=== PATIENT | male | born 1990 | race Two or more races ===

== ENCOUNTER 2020-01-06 16:45 | Emergency (ER) | payer MEDICAID, SELFPAY ==
[~2020-01-06] VITALS: Ht 182.9 cm; Wt 78.0 kg
[~2020-01-06 16:45] MED LIST: NOCURR
[2020-01-06] MEDS ORDERED: ESCI5SOL2 PO (16:52)
[2020-01-06] MEDS ORDERED: CLON0.1T83 PO (16:52)
[2020-01-06] MEDS ORDERED: TRAZ150 PO (16:56)
[2020-01-06] MEDS ORDERED: AMPH12.52 PO (16:56)
[2020-01-06] MEDS ORDERED: SUMA25TA9 PO (16:56)
[2020-01-06] MEDS ORDERED: ALBU8HFA IH (16:56)
[2020-01-06] MEDS ORDERED: CETI5TAB14 PO (16:56)
[2020-01-06 17:51] VITALS: BP 116/94
== END 2020-01-06 17:57 | disposition home or self-care (01) ==
LOC: EMS 16:45
DX: K12.0 Recurrent oral aphthae (principal); G43.909 Migraine, unspecified, not intractable, without status migrainosus; J45.909 Unspecified asthma, uncomplicated; F41.9 Anxiety disorder, unspecified; F32.9 Major depressive disorder, single episode, unspecified; Z79.899 Other long term (current) drug therapy

== ENCOUNTER 2020-01-13 01:59 | Emergency (ER) | payer MEDICAID ==
[~2020-01-13] VITALS: Ht 182.9 cm; Wt 79.5 kg
[~2020-01-13 01:59] MED LIST changes: +ALBU8HFA IH; +AMPH12.52 PO; +CETI5TAB14 PO; +CLON0.1T83 PO; +ESCI5SOL2 PO; -NOCURR; +SUMA25TA9 PO; +TRAZ150 PO
[2020-01-13] MEDS ORDERED: IBUPROFEN 800 MG TABLET PO ONE (03:30)
[2020-01-13 03:32] VITALS: BP 131/71
== END 2020-01-13 03:33 | disposition home or self-care (01) ==
LOC: EMS 02:01
DX: R07.81 Pleurodynia (principal); G43.909 Migraine, unspecified, not intractable, without status migrainosus; F41.9 Anxiety disorder, unspecified; J45.909 Unspecified asthma, uncomplicated; Z79.899 Other long term (current) drug therapy
CPT/HCPCS: 71100

== ENCOUNTER 2020-02-21 12:53 | Emergency (ER) | payer MEDICAID ==
[~2020-02-21] VITALS: Ht 182.9 cm; Wt 79.5 kg
[2020-02-21] MEDS ORDERED: CLON0.1T83 PO (13:02)
[2020-02-21] MEDS ORDERED: BECL10.6 IH (13:02)
[2020-02-21] MEDS ORDERED: TRAZ-252 PO (13:02)
[2020-02-21] MEDS ORDERED: ESCI5SOL2 PO (13:02)
[2020-02-21] MEDS ORDERED: CETI5TAB14 PO (13:02)
[2020-02-21 15:13] VITALS: BP 133/81
== END 2020-02-21 15:17 | disposition home or self-care (01) ==
LOC: EMS 12:56
DX: R05 Cough (principal); F32.9 Major depressive disorder, single episode, unspecified; J45.909 Unspecified asthma, uncomplicated; F41.9 Anxiety disorder, unspecified; Z79.899 Other long term (current) drug therapy

== ENCOUNTER 2020-04-02 16:59 | Emergency (ER) | payer MEDICAID ==
[~2020-04-02] VITALS: Ht 182.9 cm; Wt 77.3 kg
[~2020-04-02 16:59] MED LIST changes: +BECL10.6 IH; +TRAZ-252 PO; -TRAZ150 PO
[2020-04-02] MEDS ORDERED: MUPIROCIN CALCIUM 2% 22 GM OINTMENT TP ONE (17:30)
[2020-04-02 18:13] VITALS: BP 126/81
== END 2020-04-02 18:20 | disposition home or self-care (01) ==
LOC: EMS 17:01
DX: S90.811A Abrasion, right foot, initial encounter (principal); J45.909 Unspecified asthma, uncomplicated; F32.9 Major depressive disorder, single episode, unspecified; G43.909 Migraine, unspecified, not intractable, without status migrainosus; F41.9 Anxiety disorder, unspecified; X58.XXXA Exposure to other specified factors, initial encounter; Y93.01 Activity, walking, marching and hiking; Y92.89 Other specified places as the place of occurrence of the external cause; Y99.8 Other external cause status

== ENCOUNTER 2020-05-04 20:57 | Emergency (ER) | payer MEDICAID ==
[~2020-05-04] VITALS: Ht 182.9 cm; Wt 68.2 kg
[2020-05-04] MEDS ORDERED: BACITRACIN 0.9 GM PACKET OINTMENT TP ONE (22:30)
[2020-05-04] MEDS ORDERED: CIPROFLOXACIN HCL 250 MG TABLET PO ONE (22:30)
[2020-05-04] MEDS ORDERED: DOXYCYCLINE HYCLATE 100 MG CAPSULE PO ONE (22:30)
[2020-05-04 22:59] VITALS: BP 124/68
== END 2020-05-04 23:29 | disposition home or self-care (01) ==
LOC: EMS 20:57
DX: S91.331A Puncture wound without foreign body, right foot, initial encounter (principal); J45.909 Unspecified asthma, uncomplicated; G43.909 Migraine, unspecified, not intractable, without status migrainosus; F41.9 Anxiety disorder, unspecified; F32.9 Major depressive disorder, single episode, unspecified; F19.90 Other psychoactive substance use, unspecified, uncomplicated; W22.8XXA Striking against or struck by other objects, initial encounter; Y93.89 Activity, other specified; Y92.89 Other specified places as the place of occurrence of the external cause; Y99.8 Other external cause status

== ENCOUNTER 2020-10-13 16:25 | Emergency (ER) | payer MEDICAID ==
[~2020-10-13] VITALS: Ht 180.3 cm; Wt 56.8 kg
[2020-10-13 17:01] VITALS: BP 140/80
== END 2020-10-13 17:12 | disposition home or self-care (01) ==
LOC: EMS 16:25
DX: S61.255A Open bite of left ring finger without damage to nail, initial encounter (principal); F15.90 Other stimulant use, unspecified, uncomplicated; F32.9 Major depressive disorder, single episode, unspecified; F41.9 Anxiety disorder, unspecified; J45.909 Unspecified asthma, uncomplicated; Z79.899 Other long term (current) drug therapy; G43.909 Migraine, unspecified, not intractable, without status migrainosus; W55.01XA Bitten by cat, initial encounter; Y93.89 Activity, other specified; Y92.89 Other specified places as the place of occurrence of the external cause; Y99.8 Other external cause status
CPT/HCPCS: 99283; Z7502

== ENCOUNTER 2021-03-01 13:56 | Emergency (ER) | payer MEDICAID ==
[~2021-03-01] VITALS: Ht 182.9 cm; Wt 84.1 kg
[~2021-03-01 13:56] MED LIST changes: +CLON0.1T2 PO; -CLON0.1T83 PO
[2021-03-01] MEDS ORDERED: CETI-450 PO (14:59)
[2021-03-01] MEDS ORDERED: ESCI-8 PO (14:59)
[2021-03-01] MEDS ORDERED: NAPROXEN 250 MG TABLET PO ONE (15:00)
[2021-03-01] MEDS ORDERED: METHOCARBAMOL 500 MG TABLET PO ONE (15:00)
[2021-03-01 15:26] VITALS: BP 125/82
== END 2021-03-01 15:27 | disposition home or self-care (01) ==
LOC: EMS 14:01
DX: S46.912A Strain of unspecified muscle, fascia and tendon at shoulder and upper arm level, left arm, initial encounter (principal); F41.9 Anxiety disorder, unspecified; F32.9 Major depressive disorder, single episode, unspecified; J45.909 Unspecified asthma, uncomplicated; G43.909 Migraine, unspecified, not intractable, without status migrainosus; F19.90 Other psychoactive substance use, unspecified, uncomplicated; X58.XXXA Exposure to other specified factors, initial encounter; Y93.89 Activity, other specified; Y92.89 Other specified places as the place of occurrence of the external cause; Y99.8 Other external cause status
CPT/HCPCS: 99283

== ENCOUNTER 2021-03-25 14:39 | Emergency (ER) | payer MEDICAID ==
[~2021-03-25] VITALS: Ht 182.9 cm; Wt 85.0 kg
[~2021-03-25 14:39] MED LIST changes: +CETI-450 PO; -CETI5TAB14 PO; +ESCI-8 PO; -ESCI5SOL2 PO
[2021-03-25] MEDS: IBUPROFEN 600 MG TABLET PO ONE (18:17)
[2021-03-25 18:30] VITALS: BP 136/76
== END 2021-03-25 18:45 | disposition home or self-care (01) ==
LOC: EMS 14:39
DX: S29.012A Strain of muscle and tendon of back wall of thorax, initial encounter (principal); X58.XXXA Exposure to other specified factors, initial encounter; Y93.89 Activity, other specified; Y92.89 Other specified places as the place of occurrence of the external cause; Y99.8 Other external cause status
CPT/HCPCS: 99283

== ENCOUNTER 2021-05-11 11:09 | Emergency (ER) | payer MEDICAID ==
[~2021-05-11] VITALS: Ht 182.9 cm; Wt 100.0 kg
[2021-05-11 13:39] VITALS: BP 154/104
== END 2021-05-11 14:01 | disposition home or self-care (01) ==
LOC: EMS 12:04
DX: R07.89 Other chest pain (principal); R06.00 Dyspnea, unspecified; F41.9 Anxiety disorder, unspecified; J45.909 Unspecified asthma, uncomplicated; F32.9 Major depressive disorder, single episode, unspecified; F15.90 Other stimulant use, unspecified, uncomplicated
CPT/HCPCS: 71045; 93005; 99283

== ENCOUNTER 2021-06-19 13:07 | Emergency (ER) | payer MEDICAID ==
[~2021-06-19] VITALS: Ht 185.4 cm; Wt 81.8 kg
[2021-06-19 13:56] VITALS: BP 135/78
[2021-06-19 14:06] LABS: COVID AG,FIA SOURCE NASOPHARYNGEAL
== END 2021-06-19 14:55 | disposition home or self-care (01) ==
LOC: EMS 13:07
DX: R06.02 Shortness of breath (principal); R05 Cough; M79.10 Myalgia, unspecified site; F41.9 Anxiety disorder, unspecified; J45.909 Unspecified asthma, uncomplicated; F32.9 Major depressive disorder, single episode, unspecified; G43.909 Migraine, unspecified, not intractable, without status migrainosus; F19.90 Other psychoactive substance use, unspecified, uncomplicated; Z20.822 Contact with and (suspected) exposure to COVID-19
CPT/HCPCS: 71045; 87426; 99284; U0003

== ENCOUNTER 2021-09-23 14:57 | Emergency (ER) | payer MEDICAID ==
[~2021-09-23] VITALS: Ht 180.3 cm; Wt 77.3 kg
[2021-09-23 16:51] VITALS: BP 131/77
[2021-09-23] MEDS ORDERED: LOPERAMIDE HCL 2 MG CAPSULE PO ONE (17:15)
[2021-09-23] MEDS ORDERED: MECLIZINE HCL 25 MG TABLET PO ONE (17:15)
== END 2021-09-23 18:02 | disposition home or self-care (01) ==
LOC: EMS 15:02
DX: G43.909 Migraine, unspecified, not intractable, without status migrainosus (principal); R42 Dizziness and giddiness
CPT/HCPCS: 99283

== ENCOUNTER 2021-11-21 11:51 | Emergency (ER) | payer MEDICAID ==
[~2021-11-21] VITALS: Ht 182.9 cm; Wt 90.9 kg
[2021-11-21 12:00] VITALS: BP 122/84
[2021-11-21 12:32] LABS: COVID AG,FIA SOURCE NASOPHARYNGEAL
== END 2021-11-21 14:25 | disposition home or self-care (01) ==
LOC: EMS 11:52
DX: U07.1 COVID-19 (principal)
CPT/HCPCS: 99283

== ENCOUNTER 2022-05-19 14:27 | Emergency (ER) | payer MEDICAID ==
[~2022-05-19] VITALS: Ht 182.9 cm; Wt 81.0 kg
[2022-05-19 15:38] LABS: BASOPHILS % (AUTO) 0.1 % (0.0-2.0); EOSINOPHILS % (AUTO) 0.8 % (1.0-6.0); HEMATOCRIT 41.2 % (41-53); HEMOGLOBIN 13.9 g/dL (13.5-17.5); LYMPHOCYTES # (AUTO) 2.6 K/uL (1.0-4.8); LYMPHOCYTES % (AUTO) 23.9 % (22.0-44.0); MEAN CORPUSCULAR HEMOGLOBIN 29.6 pg (26.0-34.0); MEAN CORPUSCULAR HGB CONC 33.9 G/dL (31.0-37.0); MEAN CORPUSCULAR VOLUME 87 fL (80-100); MONOCYTES # (AUTO) 0.7 K/uL (0.1-1.0); MONOCYTES % (AUTO) 6.3 % (2.0-9.0); NEUTROPHILS # (AUTO) 7.6 K/uL (1.8-7.7); NEUTROPHILS % (AUTO) 68.9 % (40.0-70.0); PLATELET COUNT (AUTO) 328 K/uL (150-450); RED BLOOD CELL COUNT(AUTO) 4.71 MIL/uL (4.50-5.90); RED CELL DISTRIBUTION WIDTH 12.4 % (11.5-14.5)
[2022-05-19 15:52] LABS: ANION GAP 11 mmol/L (8-16); CALCIUM, TOTAL 9.2 mg/dL (8.8-10.5); CARBON DIOXIDE 23 mmol/L (22-29); CHLORIDE 102 mmol/L (98-107); CREATININE 1.01 mg/dL (0.60-1.30); GLOMERULAR FILTR. RATE CALC > 60 mL/min (>60); GLUCOSE,RANDOM 96 mg/dL (70-110); POTASSIUM 3.9 mmol/L (3.5-5.1); SODIUM SERUM 136 mmol/L (136-145); UREA NITROGEN, BLOOD 12 mg/dL (7-18)
[2022-05-19 16:00] LABS: ALANINE AMINOTRANSFERASE 20 U/L (12-78); ALBUMIN 4.1 g/dL (3.4-5.0); ALKALINE PHOSPHATASE 74 U/L (46-116); ASPARTATE AMINOTRANSFERASE 13 U/L (15-37); BILIRUBIN,TOTAL 0.3 mg/dL (0.1-1.0); TOTAL PROTEIN, SERUM 7.9 g/dL (6.4-8.2)
[2022-05-19] MEDS ORDERED: POLY17PO PO (17:51)
[2022-05-19 17:54] VITALS: BP 125/84
== END 2022-05-19 18:28 | disposition home or self-care (01) ==
LOC: EMS 14:33
DX: K59.00 Constipation, unspecified (principal); J45.909 Unspecified asthma, uncomplicated; Z79.899 Other long term (current) drug therapy
CPT/HCPCS: 74022; 80053; 85025; 99284

== ENCOUNTER 2023-08-02 14:28 | Emergency (ER) | payer MEDICAID ==
[~2023-08-02] VITALS: Ht 185.4 cm; Wt 77.3 kg
[~2023-08-02 14:28] MED LIST changes: +ALBU18HF12 IH; -ALBU8HFA IH; +POLY17PO PO; +SUMA25TA15 PO; -SUMA25TA9 PO
[2023-08-02 16:42] LABS: BASOPHILS % (AUTO) 0.3 % (0.0-2.0); EOSINOPHILS % (AUTO) 1.5 % (1.0-6.0); HEMATOCRIT 40.4 % (41-53); HEMOGLOBIN 13.8 g/dL (13.5-17.5); LYMPHOCYTES % (AUTO) 39.5 % (22.0-44.0); MEAN CORPUSCULAR HEMOGLOBIN 30.3 pg (26.0-34.0); MEAN CORPUSCULAR VOLUME 89 fL (80-100); MONOCYTES # (AUTO) 0.7 K/uL (0.1-1.0); NEUTROPHILS # (AUTO) 3.7 K/uL (1.8-7.7); NEUTROPHILS % (AUTO) 49.7 % (40.0-70.0); PLATELET COUNT (AUTO) 355 K/uL (150-450); RED BLOOD CELL COUNT(AUTO) 4.54 MIL/uL (4.50-5.90); RED CELL DISTRIBUTION WIDTH 12.6 % (11.5-14.5); WHITE BLOOD COUNT (AUTO) 7.5 K/uL (4.5-11.0)
[2023-08-02 16:48] LABS: ANION GAP 10 mmol/L (8-16); CALCIUM, TOTAL 9.3 mg/dL (8.8-10.5); CARBON DIOXIDE 25 mmol/L (22-29); CHLORIDE 105 mmol/L (98-107); CREATININE 0.83 mg/dL (0.60-1.30); GLOMERULAR FILTR. RATE CALC > 60 mL/min (>60); GLUCOSE,RANDOM 91 mg/dL (70-110); POTASSIUM 3.4 mmol/L (3.5-5.1); SODIUM SERUM 140 mmol/L (136-145); UREA NITROGEN, BLOOD 8 mg/dL (7-18)
[2023-08-02 16:55] LABS: ALANINE AMINOTRANSFERASE 13 U/L (12-78); ALKALINE PHOSPHATASE 67 U/L (46-116); ASPARTATE AMINOTRANSFERASE 12 U/L (15-37); BILIRUBIN,TOTAL 0.2 mg/dL (0.1-1.0); TOTAL PROTEIN, SERUM 7.3 g/dL (6.4-8.2)
[2023-08-02 17:30] VITALS: BP 126/75; PULSE 75; RESP 12
== END 2023-08-02 17:38 | disposition home or self-care (01) ==
LOC: EMS 14:28
DX: K62.5 Hemorrhage of anus and rectum (principal); J45.909 Unspecified asthma, uncomplicated; F90.9 Attention-deficit hyperactivity disorder, unspecified type
CPT/HCPCS: 80053; 85025; 99283

== ENCOUNTER 2024-10-25 14:06 | Emergency (ER) | payer MEDICAID ==
[~2024-10-25] VITALS: Ht 182.9 cm; Wt 80.5 kg
[~2024-10-25 14:06] MED LIST changes: -POLY17PO PO; +POLY17PO62 PO
[2024-10-25 14:18] VITALS: TEMP 98.3
[2024-10-25] MEDS ORDERED: CLON-353 PO (16:49)
[2024-10-25] MEDS ORDERED: ATOG60TA PO (16:49)
[2024-10-25] MEDS ORDERED: FLUO-418 PO (16:49)
[2024-10-25] MEDS ORDERED: FLUT16SP NASAL (16:49)
[2024-10-25] MEDS: DIAZEPAM 5 MG TABLET PO ONE (17:01)
[2024-10-25] MEDS: KETOROLAC TROMETHAMINE 30 MG/ML VIAL IM ONE (17:02)
[2024-10-25 19:39] VITALS: BP 119/65; PULSE 78; RESP 16; O2SAT 98
== END 2024-10-25 19:42 | disposition home or self-care (01) ==
LOC: EMS 14:06
DX: S16.1XXA Strain of muscle, fascia and tendon at neck level, initial encounter (principal); J45.909 Unspecified asthma, uncomplicated; F32.A Depression, unspecified; F43.10 Post-traumatic stress disorder, unspecified; Z79.899 Other long term (current) drug therapy; V19.9XXA Pedal cyclist (driver) (passenger) injured in unspecified traffic accident, initial encounter; Y93.89 Activity, other specified; Y92.89 Other specified places as the place of occurrence of the external cause; Y99.8 Other external cause status
CPT/HCPCS: 99283; 96372; J1885

== ENCOUNTER 2024-10-28 09:34 | Emergency (ER) | payer MEDICAID ==
[~2024-10-28] VITALS: Ht 182.9 cm; Wt 78.2 kg
[~2024-10-28 09:34] MED LIST changes: -AMPH12.52 PO; +ATOG60TA PO; -BECL10.6 IH; +CLON-353 PO; -CLON0.1T2 PO; -ESCI-8 PO; +FLUO-418 PO; +FLUT16SP NASAL; -POLY17PO62 PO; -SUMA25TA15 PO
[2024-10-28 09:48] VITALS: TEMP 98.2
[2024-10-28 10:43] VITALS: BP 110/72; PULSE 70; RESP 18; O2SAT 99
== END 2024-10-28 10:47 | disposition home or self-care (01) ==
LOC: EMS 09:34
DX: M54.2 Cervicalgia (principal); F32.A Depression, unspecified; G47.00 Insomnia, unspecified; F43.10 Post-traumatic stress disorder, unspecified; J45.909 Unspecified asthma, uncomplicated; Z79.899 Other long term (current) drug therapy
CPT/HCPCS: 99282; Z7502